=== PATIENT | female | born 1940 | race Caucasian/White ===

== ENCOUNTER 2021-11-05 08:56 | Outpatient (CLI) | payer MEDICARE, BC, SELFPAY ==
--- NOTE | 2021-11-08 13:27 | WPDSIXMINUTE ---
Six Minute Walk Procedure Procedure Performed Pulmonary Stress Test (6 min walk) Six Minute Walk Six Minute Walk: This 6 minute walk test was carried out with the patient breathing ambient air. The pre walk baseline oxyhemoglobin saturation was 94%. The patient walked over 304 m with no stops during testing. During the walk the oxyhemoglobin saturation remained in the range of 89% to 93%. The perceived dyspnea on the Maddie scale was 3 at baseline and increased to 5 at the end of testing. Impression: No evidence of significant oxyhemoglobin desaturation on this test.
--- NOTE | 2021-11-08 13:29 | WPDPFTINT ---
PFT Procedure Performed PFT Procedure Performed Spirometry with Pre/Post Bronchodilator Plethysmography (Lung Vol) Diffusing Cap (DLCO) Flow Vol Loop PFT Interpretation Lung volumes were measured with the body plethysmography method. Lung volumes are unremarkable. Spirometry showed diminished expiratory flow rates and a diminished FEV1 to FVC ratio of 40%, consistent with obstructive airway disease. Following administration of a bronchodilator there was no significant change in the expiratory flow rates. Lung diffusion capacity is severely reduced at 44% predicted. The flow volume loop is consistent with emphysema. Impression: Moderate obstructive airway disease with no response to bronchodilators on this testing. Severely reduced lung diffusion capacity.
== END 2021-11-05 08:57 | disposition home or self-care (01) ==
LOC: ANHPFT 08:58
PROVIDERS: PCP Internal Medicine; Visit Provider Internal Medicine Pulmonary Disease
DX: J44.9 Chronic obstructive pulmonary disease, unspecified (principal); Z87.891 Personal history of nicotine dependence
CPT/HCPCS: 94060; 94618; 94726; 94729

== ENCOUNTER 2021-11-30 11:19 | Outpatient (CLI) | payer MEDICARE, BC, SELFPAY ==
--- NOTE | ~2021-11-30 | XR_ITS ---
XR chest 2V 11/30/2021 11:58 Indication: Follow-up COPD Procedure: 2 view chest Comparison: Comparison to multiple prior studies sequentially, with oldest reviewed study dated 11/26. Findings: Heart size normal. There is bibasilar atelectasis/scarring. No focal pneumonia, edema, pleu ral effusion or pneumothorax. The lungs are hyperinflated which is consistent with, but not diagnostic of chronic obstructive pulmo nary disease. Impression: 1: Bibasilar atelectasis/scarring. Reviewed, dictated and finalized at location A. Impression: 1: Bibasilar atelectasis/scarring.
[2021-11-30 11:39] LABS: Basophils Absolute Auto 0.09 K/mm3 (0.00-0.10); Basophils Percent Auto 0.9 % (0.0-1.0); Eosinophils Absolute Auto 0.16 K/mm3 (0.02-0.50); Eosinophils Percent Auto 1.6 % (1.0-6.0); Hematocrit 47.1 % (35.0-42.0); Hemoglobin 15.3 g/dL (11.7-13.8); Immature Granulocyte Absolute 0.19 K/mm3 (0.00-0.00); Immature Granulocyte Percent A 1.9 % (0.0-0.0); Mean Corpuscular HGB Conc 32.5 g/dL (32.0-36.0); Mean Corpuscular Hemoglobin 31.9 pg (27.0-31.0); Mean Corpuscular Volume 98.1 fL (78.0-102.0); Monocytes Absolute Auto 1.07 K/mm3 (0.10-0.90); Monocytes Percent Auto 10.7 % (2.0-11.0); Neutrophils Absolute Auto 5.6 K/mm3 (1.7-7.2); Neutrophils Percent Auto 55.9 % (50.0-70.0); Platelet Count Result 309 K/mm3 (150-420)
[2021-11-30 13:07] LABS: Anion Gap 9 mmol/L (8-16); Blood Urea Nitrogen 9 mg/dL (7-18); Calcium 9.1 mg/dL (8.5-10.1); Carbon Dioxide 28 mmol/L (21-32); Chloride 102 mmol/L (98-108); Estimated Glomerular Filt Rate > 60; Glucose 112 mg/dL (70-99); Osmolality Calculated 287 mOsm/kg (285-295); Potassium 4.3 mmol/L (3.5-5.1); Sodium 139 mmol/L (136-145)
== END 2021-11-30 11:20 | disposition home or self-care (01) ==
LOC: CHSLAB 11:24
PROVIDERS: PCP Internal Medicine; Visit Provider Internal Medicine Pulmonary Disease
DX: J44.9 Chronic obstructive pulmonary disease, unspecified (principal)
CPT/HCPCS: 36415; 71046; 80048; 85025

== ENCOUNTER 2021-12-20 10:19 | Emergency (ER) | payer MEDICARE, BC, SELFPAY ==
--- NOTE | ~2021-12-20 | XR_ITS ---
[XR ribs RT 2V ] INDICATION: Right lateral rib pain TECHNIQUE: Frontal projection of the upper right ribs, frontal projection of the lower right ribs, ob lique projection of all the right ribs, frontal inspiratory chest x-ray for interpretation. FINDINGS: There are no displaced rib fractures identified. There are no soft tissue abnormality see n. The lungs are clear. There is a calcified lymph node in the right axilla. Mild osteoarthritis of the right shoulder. IMPRESSION: 1:No acute displaced rib fractures. Reviewed, dictated and finalized at location B.
--- NOTE | ~2021-12-20 | XR_ITS ---
EXAMINATION: XR thoracolumbar DATE: 12/20/2021 11:04 INDICATION: Right-sided thoracolumbar pain after pulling injury. TECHNIQUE: 2 views of thoracolumbar spine were obtained. COMPARISON: Chest 2 views 11/30/2021, rib radiographs 12/20/2021 FINDINGS: There are 12 pairs of ribs. There is 7 degrees levocurvature of lumbar spine. S1 is a trans itional segment. There is 7 mm anterolisthesis of L5 on S1. There is a burst fracture of T8 with 3/5 loss of height. There is mild chronic anterior wedging of T11 vertebral body. There is severely decre ased disc height from L2-L3 through L5-S1 with endplate remodeling. There are endplate osteophytes at many levels. There is multilevel severe facet joint osteoarthritis in lumbar spine. There are calcif ications in the pancreas, consistent with chronic pancreatitis. IMPRESSION: 1. T7 burst fracture, new from 11/30/21. 2. Mild thoracic spondylosis and severe lumbar spondylosis. Reviewed, dictated and finalized at location A.
--- NOTE | ~2021-12-20 | CT_ITS ---
EXAMINATION: CT thoracic spine wo con DATE: 12/20/2021 11:46 INDICATION: Burst fracture. TECHNIQUE: Computed tomography (CT) of the thoracic spine was performed without intravenous contrast. The dose-length product was 321.08 mGy-cm. Automated exposure control and iterative reconstruction t echnique were employed. COMPARISON: Chest x-ray dated 11/30/[address] chest dated 11/23/2016 FINDINGS: There is mild compression fracture of T6 wit sclerotic and lytic defects of the vertebra. T here is mild wedge compression deformity of T7. There is a burst fracture of T8 which is new compared with 11/30/2021. There are sclerosis at the inferior endplate of L2 and superior endplate of L3, lik mayda degenerative. There is emphysema. There are multiple right lower lobe nodules/masses measuring up to 1.9 cm, suspicious for primary bronchogenic carcinoma or metastatic disease. There are coarse lashonda cifications of the pancreas with pancreatic ductal dilation, consistent with chronic pancreatitis. No significant pleural or pericardial effusion. There is atherosclerosis. IMPRESSION: 1. New T8 burst fracture with approximately 50% loss of vertebral body height. 2: Mixed lytic and sclerotic lesions of T6 with mild endplate compression deformities which appear ch ronic. Pathologic fracture not excluded. 3: Multiple nodules/masses of the right lower lobe posteriorly, suspicious for bronchogenic carcinoma or metastatic disease. 4: Chronic pancreatitis. Reviewed, dictated and finalized at location B. IMPRESSION: 1. New T8 burst fracture with approximately 50% loss of vertebral body height. 2: Mixed lytic and sclerotic lesions of T6 with mild endplate compression defor mities which appear chronic. Pathologic fracture not excluded. 3: Multiple nodules/masses of the right lower lobe posteriorly, suspicious for bronchogenic carcinoma or metastatic disease. 4: Chronic pancreatitis.
[2021-12-20 10:20] VITALS: BP 132/80; BP 155/84; PULSE 110; PULSE 116; RESP 17; RESP 20; TEMP 36.2; O2SAT 94; O2SAT 95
[2021-12-20] MEDS: KETOROLAC 30 MG/ML VIAL (*BKC) IM (11:10)
[2021-12-20 11:20] VITALS: BP 140/71; PULSE 100; RESP 18; O2SAT 94
[2021-12-20 12:00] VITALS: BP 135/77; PULSE 87; RESP 20; TEMP 36.3; O2SAT 93
[2021-12-20] MEDS: MORPHINE SULFATE (*CRX) 4 MG/ML INJ IM (12:06)
--- NOTE | 2021-12-20 12:13 | ED.BACK ---
HPI - Back Pain/Injury General Chief Complaint: Back Pain/Injury Stated Complaint: Right side Back pain for 2 weeks Time Seen by Provider: 12/20/21 10:21 Source: patient and family Mode of arrival: ambulatory Limitations: no limitations History of Present Illness HPI Narrative: This is an 81-year-old female that presents with a 2 week history of mid right back pain that occurred approximately 2 weeks while she was on a river boat and trying to pull herself up the stairs causing pain and tenderness to her mid back. Patient has a history of COPD and states that she is always short of breath, is complaining of right rib pain, with no fever chills neural no neurological deficits no abdominal pain no no fever chills no bowel or bladder dysfunction. MD elicited complaint: back injury Pertinent past history: prior back pain Onset (ago): week(s) Timing: constant Severity: severe Pain scale (0-10): 10 Quality: aching Location: lumbar spine and thoracic spine Exacerbating factors: movement Relieving factors: immobilization Context: turning/twisting Related Data Home Medications Medication Instructions Recorded Confirmed aspirin 81 mg capsule 81 mg PO DAILY 10/20/21 12/20/21 diltiazem HCl 180 mg 180 mg PO DAILY 10/20/21 12/20/21 capsule,extended release 24 hr montelukast 10 mg tablet 10 mg PO DAILY 10/20/21 12/20/21 simvastatin 20 mg tablet 20 mg PO DAILY 10/20/21 12/20/21 spironolactone 50 mg tablet 50 mg PO DAILY 10/20/21 12/20/21 tiotropium bromide 18 mcg capsule 18 mcg inhalation DAILY 12/20/21 12/20/21 with inhalation device (Spiriva with HandiHaler) Allergies Allergy/AdvReac Type Severity Reaction Status Date / Time No Known Allergies Allergy Unverified 12/20/21 10:35 Review of Systems Review of Systems: All systems reviewed & are unremarkable except as noted in HPI and below PMFSH Past Medical History Medical History COPD (chronic obstructive pulmonary disease) Family History Family History Sibling Carcinoma of colon Father Family history of lung cancer Mother Family history of heart disease in male family member before age 55 Other Family history of cardiovascular disease Hypertension Social History Social History Smoking status: Former smoker Alcohol intake: never Exam Const: General: no acute distress Nutritional Appearance: well nourished Orientation/consciousness: patient oriented x3 Limitations: no limitations HENMT: Head: normal to inspection Ears: external ears normal Face/Nose/Sinus: Normal external nose present Face and sinus: normal facial exam Mouth: Yes Normal oral and palatal mucosa present Eyes: Conjunctivae: conjunctivae normal EOM: EOMs intact bilaterally Neck: Neck: normal visual inspection and no lymphadenopathy Chest: Chest palpation & inspection: normal inspection of the chest Resp: Effort & Inspection: normal respiratory effort Auscultation: clear to auscultation bilaterally Cardio: Rate: regular rate Rhythm: regular rhythm GI: Auscultation: normal bowel sounds : General: Yes bladder normal to palpation Urinary Catheter: Urinary Catheter: patent and draining Back/Spine/Pelvis: Back: no CVA tenderness Skin: General skin exam: normal color Rashes: no rashes Wounds: no wounds Neuro: General: patient oriented x3, moves all extremities, no meningeal signs and no focal motor deficits Speech: normal speech Gait exam (Neuro): Normal gait present Extrem: Other: midback with right para spinal tenderness with limited range of motion secondary to pain. Psych: Mental Status: mental status grossly normal Affect: normal affect Attitude: cooperative Course Course Emergency Course: Patient presents with a 2 week history of back pain she rates it around 10/10 received IM Tor
[2021-12-20 13:05] VITALS: BP 145/91; PULSE 81; RESP 16; TEMP 37; O2SAT 96
== END 2021-12-20 13:45 | disposition home or self-care (01) ==
PROVIDERS: Emergency Provider Emergency Medicine; PCP Internal Medicine
DX: S22.009A Unspecified fracture of unspecified thoracic vertebra, initial encounter for closed fracture (principal); J44.9 Chronic obstructive pulmonary disease, unspecified; Z87.891 Personal history of nicotine dependence
CPT/HCPCS: 71100; 72080; 72128; 96372; 99284; J1885; J2270

== ENCOUNTER 2021-12-30 11:13 | Emergency (ER) | payer MEDICARE, BC, SELFPAY ==
--- NOTE | ~2021-12-30 | CT_ITS ---
EXAMINATION: CT abdomen pelvis w con DATE: 12/30/2021 13:01 INDICATION: Right flank pain. TECHNIQUE: Computed tomography (CT) of the abdomen and pelvis was performed with 100 mL Omnipaque 350 intravenous contrast. Automated exposure control and iterative reconstruction technique were employe d. The dose-length product was 278.52 mGy-cm. COMPARISON: Abdomen and pelvis CT 12/2416, thoracic spine CT 12/20/21 FINDINGS: The visualized portions of the lung bases demonstrate emphysema. There are partially visual ized are multiple nodules in right lower lobe, many which are confluent. The largest nodule measures 1.8 cm. A calcified right lung nodule is consistent with old granulomatous disease. No pleural effusi on. The heart size is normal. No pericardial effusion. There are greater than 30 masses in the liver measuring up to 1.8 cm. The gallbladder is normal. Calcifications in the spleen are consistent with o ld granulomatous disease. There are calcifications in the pancreas, and the pancreatic duct is dilate d to 9 mm, consistent with chronic pancreatitis. There are new masses in the adrenal glands measuring up to 3.9 cm on the right. The kidneys are normal. There are changes of right hemicolectomy. There a re no pathologically enlarged lymph nodes. There is no free intraperitoneal fluid. There is severe wiley mbar spondylosis. IMPRESSION: 1. Pulmonary nodules, liver masses, and adrenal masses, consistent with metastatic disease. Ultrasoun d-guided core needle biopsy of a liver mass is recommended for diagnosis. 2. Chronic pancreatitis. Reviewed, dictated and finalized at location A. IMPRESSION: 1. Pulmonary nodules, liver masses, and adrenal masses, consistent with metasta tic disease. Ultrasound-guided core needle biopsy of a liver mass is recommende d for diagnosis. 2. Chronic pancreatitis.
[2021-12-30 11:17] VITALS: BP 141/59; PULSE 90; RESP 18; TEMP 36.8; O2SAT 91
--- NOTE | 2021-12-30 11:37 | ED.GENADULT ---
HPI - General Adult General Chief complaint: Unspecified Stated complaint: flank pain Time Seen by Provider: 12/30/21 11:25 History of Present Illness HPI narrative: 81-year-old female with a history of COPD, on 2L home O2, here for evaluation of right flank pain/rib pain for the past 10 days. Patient states it came on after pulling herself up a set of stairs. Is there all the time, worse with deep breaths and movement of the thorax. Patient was originally seen at [place] ED on 12/20 for her pain, was diagnosed with a T8 burst fracture on a thoracic spine CT. She was referred to the [facility] spine surgeon, who did not appreciate this fracture and was told that she had a muscle sprain. Patient presents due to continued pain on her right flank/right rib, worse with deep breaths. Has been using Tylenol with moderate relief. Denies chest pain, nausea, vomiting, abdominal pain. Has chronic cough and difficulty breathing due to COPD, no worse than usual. Related Data Home Medications Medication Instructions Recorded Confirmed aspirin 81 mg capsule 81 mg PO DAILY 10/20/21 12/20/21 diltiazem HCl 180 mg 180 mg PO DAILY 10/20/21 12/20/21 capsule,extended release 24 hr montelukast 10 mg tablet 10 mg PO DAILY 10/20/21 12/20/21 simvastatin 20 mg tablet 20 mg PO DAILY 10/20/21 12/20/21 spironolactone 50 mg tablet 50 mg PO DAILY 10/20/21 12/20/21 tiotropium bromide 18 mcg capsule 18 mcg inhalation DAILY 12/20/21 12/20/21 with inhalation device (Spiriva with HandiHaler) Allergies Allergy/AdvReac Type Severity Reaction Status Date / Time No Known Allergies Allergy Unverified 12/20/21 10:35 Review of Systems Review of Systems: Gen: Denies fevers or chills Eyes: Denies eye pain or visual change ENT: Denies congestion Respiratory: Denies shortness of breath or cough CV: Denies chest pain or palpitations GI: Denies abdominal pain nausea, emesis or diarrhea denies burning, urgency, frequency or hematuria Musculoskeletal: Reports right-sided flank pain/rib pain. Neuro: Denies numbness, tingling, weakness or focal weakness Skin: Denies rash Except as documented, all other systems reviewed and negative PMFSH Past Medical History Medical History COPD (chronic obstructive pulmonary disease) Family History Family History Sibling Carcinoma of colon Father Family history of lung cancer Mother Family history of heart disease in male family member before age 55 Other Family history of cardiovascular disease Hypertension Social History Social History Smoking status: Former smoker Alcohol intake: never Exam Narrative: APPEARANCE: Well appearing, no pain in distress, well-nourished. Head: Normocephalic and atraumatic. EYES: PERRLA/EOMI, conjunctivae clear NOSE: No nasal drainage EARS: External ear normal in appearance THROAT: Oropharynx is clear. Mucous membranes are moist. NECK: Supple. No adenopathy, no masses. RESPIRATORY: No flail chest deformity. Diminished breath sounds throughout. CARDIOVASCULAR: Regular rate and rhythm without murmurs, rubs, or gallops. ABDOMINAL: Normoactive bowel sounds. Soft, nontender, nondistended. No rebound tenderness or guarding. MUSCULOSKELETAL: Tenderness over the right lower ribs and flank area. extremities are warm and well-perfused. Moves all extremities well. No edema. NEURO: Normal speech. No focal neurologic deficits. SKIN: No visible bruising over flanks. Skin is warm and dry. No rashes. PSYCHIATRIC: Normal affect/mood. Course Consultations Consultation #1: Spoke with Dr. Bynum, oncology, agrees with plan for outpatient follow up for liver biopsy Date: 12/30/21 Time: 14:01 Consultation #2: Spoke with patient's PCP, agrees with plan for outpatient f/u with oncology Date:
[2021-12-30 11:58] LABS: Basophils Absolute Auto 0.1 K/mm3 (0.0-0.1); Basophils Percent Auto 0.9 % (0.2-1.2); Eosinophils Absolute Auto 0.1 K/mm3 (0-0.3); Eosinophils Percent Auto 1.3 % (0-4.4); Hematocrit 45.5 % (37.0-47.0); Hemoglobin 14.9 g/dL (12.0-15.0); Immature Granulocyte Absolute 0.32 K/mm3 (0.00-0.031); Immature Granulocyte Percent A 3.8 % (0-0.5); Lymphocytes Absolute Auto 1.93 K/mm3 (0.9-3.2); Lymphocytes Percent Auto 22.8 % (18.3-44.2); Mean Corpuscular HGB Conc 32.7 g/dl (32-36); Mean Corpuscular Hemoglobin 31.1 pg (26-34); Mean Platelet Volume 8.9 fl (7.4-10.4); Monocytes Absolute Auto 0.6 K/mm3 (0.1-0.6); Monocytes Percent Auto 7.4 % (2.6-8.5); Neutrophils Absolute Auto 5.4 K/mm3 (1.3-6.7); Neutrophils Percent Auto 63.8 % (45.5-73.1); Nucleated Red Blood Cells Perc 0.4 % (0.0-0.2); Platelet Count Result 257 k/mm3 (150-375); Red Blood Count 4.79 M/mm3 (4.2-5.4); Red Cell Distribution Width 14.6 % (11.5-14.5); White Blood Count 8.5 K/mm3 (4.5-10.0)
[2021-12-30 12:01] VITALS: BP 132/71; PULSE 87; RESP 20; O2SAT 93
[2021-12-30] MEDS: LIDOCAINE 5% PATCH 1 PATCH TRANSDERM (12:01)
[2021-12-30 12:17] LABS: Alanine Aminotransferase 30 U/L (6-35); Alkaline Phosphatase 568 U/L (38-126); Anion Gap 14 mmol/L (8-16); Aspartate Amino Transferase 96 U/L (14-36); Bilirubin,Total 0.3 mg/dL (0.2-1.3); Blood Urea Nitrogen 15 mg/dL (7-17); Calcium 8.7 mg/dL (8.4-10.2); Carbon Dioxide 23 mmol/L (22-30); Chloride 101 mmol/L (98-107); Estimated CRCL calculation 38 ml/min; Estimated Glomerular Filt Rate > 60; Glucose 130 mg/dL (65-110); Potassium 3.7 mmol/L (3.4-5.0); Sodium 138 mmol/L (137-145)
[2021-12-30 13:54] VITALS: BP 126/59; PULSE 92; RESP 18; O2SAT 98
[2021-12-30 14:20] LABS: INR 1.3; Prothrombin Time 15.7 Seconds (11.1-14.7)
[2021-12-30 14:21] LABS: Partial Thromboplastin Time 35.7 SECONDS (22.3-36.8)
== END 2021-12-30 14:56 | disposition home or self-care (01) ==
PROVIDERS: Physician Assistant; Emergency Provider Emergency Medicine; PCP Internal Medicine
DX: C78.7 Secondary malignant neoplasm of liver and intrahepatic bile duct (principal); J44.9 Chronic obstructive pulmonary disease, unspecified; Z99.81 Dependence on supplemental oxygen; Z79.82 Long term (current) use of aspirin; Z87.891 Personal history of nicotine dependence
CPT/HCPCS: 36415; 74177; 80053; 85025; 85610; 85730; 99284; A9270; Q9967

== ENCOUNTER 2022-01-03 11:58 | Outpatient (CLI) | payer MEDICARE, BC, SELFPAY ==
[2022-01-03 12:28] LABS: INR 1.1; Prothrombin Time 13.8 Seconds (11.1-14.7)
== END 2022-01-03 11:59 | disposition home or self-care (01) ==
LOC: ANHLAB 12:01
PROVIDERS: PCP Internal Medicine; Visit Provider Nurse Practitioner Family
DX: R16.0 Hepatomegaly, not elsewhere classified (principal)
CPT/HCPCS: 36415; 85610

== ENCOUNTER 2022-01-10 08:23 | Outpatient (CLI) | payer MEDICARE, BC, SELFPAY ==
--- NOTE | ~2022-01-10 | NM_ITS ---
EXAMINATION: NM bone scan whole body DATE: 01/10/2022 12:30 INDICATION: Cancer metastatic to bone. TECHNIQUE: 25.7 mCi Tc-99m HDP was administered intravenously. Delayed whole-body scintigrams were o btained. COMPARISON: CT abdomen and pelvis 12/30/2021, thoracic spine CT 12/20/2021 FINDINGS: There are widespread scattered foci of increased activity in the axial skeleton including i n the ribs, spine, pelvis, proximal femora, and right humerus, some correlating with mixed lytic and sclerotic lesions by CT. IMPRESSION: 1. Widespread bone lesions, consistent with metastatic disease. Reviewed, dictated and finalized at location A. 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
== END 2022-01-10 08:24 | disposition home or self-care (01) ==
PROVIDERS: PCP Internal Medicine; Visit Provider Internal Medicine Hematology & Oncology
DX: C79.51 Secondary malignant neoplasm of bone (principal)
CPT/HCPCS: 78306; A9561

== ENCOUNTER 2022-01-14 02:44 | Outpatient (CLI) | payer MEDICARE, BC, SELFPAY ==
[2022-01-07 15:06] VITALS: BMI 25.0
--- NOTE | 2022-01-10 13:46 | PC.NURSE ---
Addendum entered by Evette Curry RN 01/10/22 14:52: PT'S DAUGHTER INSTRUCTED TO BRING PATIENT TO IMAGING CENTER AT FRONT OF THE HOSPITAL ON 01/14/22 @ 0900. SHE RELAYS UNDERSTANDING. Original Note: Pre Radiology instructions Report to the Outpatient Waiting Room, entrance under the green pavilion located off [facility], at time __9:00AM on date ___01/14/22____. Procedure Time: ___9:30AM . YOU MAY BE MONITORED AT HOSPITAL FOR UP TO 4 HOURS AFTER YOUR PROCEDURE. One visitor will be allowed to accompany the patient into the hospital. The visitor will be instructed to remain with patient at all times or leave the building due to restrictions. We will allow the visitor to come back to the postoperative area when patient is ready. NO children visitors allowed at this time. You and your visitor will be asked to self-screen and do not enter if you have any COVID symptoms. A mask is required within the hospital. Patients are to have no food or drink 6 hours prior to procedure time Driving will be restricted after the procedure, you must have a person to drive you home. Labs will be drawn in preop area and once reviewed, you will be taken to radiology area for procedure. When the procedure is completed, you will be taken to outpatient where you will be monitored for several hours. You may have one visitor in this area. Other than holding anti-coagulants, patient may take other medication(s) as scheduled. Prior to your appointment date patients are instructed to hold anti-coagulants after discussing with ordering provider to stop. If unable to discontinue anti-coagulants please notify radiologist. No aspirin or warfarin (Coumadin) for 7 days prior to the procedure. No clopidogrel (Plavix), ticagrelor (Brilinta), prasugrel (Effient) or dabigatran (Pradaxa) for 5 days prior to the procedure. No rivaroxaban (Xarelto), apixaban (Eliquis), dipyridamole (Aggrenox or Persantine) or cilostazol (Pletal) for 2 days prior to the procedure. Medications to discontinue per physician: HOLD ASPIRIN 7 DAYS PRE-PROCEDURE Date to take last dose: ___01/07/22 Please leave all valuables, including medications, at home the day of procedure. The hospital will not accept responsibility for valuables. Wear comfortable, loose fitting clothing. Follow any additional instructions given to you from ordering provider. Telephone instructions given to _DAUGHTER___and asked if any additional questions and then verbalized understanding. Patient advised to call scheduling provider office or registration scheduling [phone] if any additional questions.
[2022-01-14] VITALS (13 sets, daily range): BP systolic 118–145; BP diastolic 60–76; PULSE 84–98; RESP 14–20; O2SAT 92–98
--- NOTE | ~2022-01-14 | US_ITS ---
EXAMINATION: US biopsy liver DATE: 01/14/2022 10:04 INDICATION: Liver mass. TECHNIQUE: The procedure including the risks, benefits, and alternatives was discussed with the patie nt. Risks discussed included bleeding and infection. The patient understood the risks and agreed to p roceed. The skin overlying the left hepatic lobe was prepped and draped in usual sterile fashion. An esthetic was administered with 1% lidocaine subcutaneously. An 18 gauge core biopsy needle was then used to obtain 3 core biopsy specimens under continuous sonographic guidance. The entry site was yuly debbie and dressed. There were no immediate complications. FINDINGS: Ultrasound images demonstrate the needle in a hypoechoic mass in left hepatic lobe. IMPRESSION: 1. Ultrasound-guided core needle biopsy of a mass in left hepatic lobe. Reviewed, dictated and finalized at location A. 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
== END 2022-01-14 14:03 | disposition home or self-care (01) ==
PROVIDERS: Radiology Diagnostic Radiology; PCP Internal Medicine; Visit Provider Internal Medicine Hematology & Oncology
PROC: BF45ZZZ Ultrasonography of Liver (ICD-10-PCS; CPT 47000; principal; 2022-01-14 09:30)
DX: C22.8 Malignant neoplasm of liver, primary, unspecified as to type (principal)
CPT/HCPCS: 47000; 76942; 88307; 88342